=== PATIENT | female | born 1995 | race Caucasian/White ===

== ENCOUNTER → 2016-10-28 | Outpatient (REF) | payer OTHER | LOC: M SFHCLERA 13:02 | PROVIDERS: ATTEND Nurse Practitioner Family | DX: J02.9 Acute pharyngitis, unspecified (principal) ==

== ENCOUNTER → 2016-11-27 | Outpatient (REF) | payer OTHER | LOC: M LAB REF 17:22 | PROVIDERS: ATTEND Surgery | DX: D22.9 Melanocytic nevi, unspecified (principal) ==

== ENCOUNTER → 2017-04-09 | Outpatient (REF) | payer OTHER | LOC: M SFHCWAGY 08:16 | DX: Z12.4 Encounter for screening for malignant neoplasm of cervix (principal) | CPT/HCPCS: G0123 ==

== ENCOUNTER → 2017-04-23 | Outpatient (REF) | payer OTHER ==
[2017-04-23 21:31] LABS: CHLAMYDIA DNA AMPLIFICATION NEGATIVE (NEGATIVE); GC DNA AMPLIFICATION POSITIVE (NEGATIVE)
== END ==
LOC: M SFHCWAGY 17:46
DX: Z11.3 Encounter for screening for infections with a predominantly sexual mode of transmission (principal)

== ENCOUNTER → 2017-04-25 | Outpatient (REF) | payer OTHER ==
[2017-04-28 10:40] LABS: HIV 1&2 SCREEN CENTAUR NEGATIVE (NEGATIVE)
== END ==
LOC: M SFHCWAGY 15:14
DX: Z11.3 Encounter for screening for infections with a predominantly sexual mode of transmission (principal); Z11.4 Encounter for screening for human immunodeficiency virus [HIV]

== ENCOUNTER → 2017-05-23 | Outpatient (REF) | payer OTHER ==
[2017-05-23 14:30] LABS: HIV 1&2 SCREEN CENTAUR NEGATIVE (NEGATIVE)
== END ==
LOC: M SFHCWAGY 11:35
DX: A54.9 Gonococcal infection, unspecified (principal)

== ENCOUNTER → 2017-05-23 | Outpatient (REF) | payer OTHER ==
[2017-05-23 17:49] LABS: CHLAMYDIA DNA AMPLIFICATION NEGATIVE (NEGATIVE); GC DNA AMPLIFICATION NEGATIVE (NEGATIVE)
== END ==
LOC: M SFHCWAGY 15:38
DX: A54.9 Gonococcal infection, unspecified (principal)

== ENCOUNTER → 2017-09-19 | Outpatient (REF) | payer OTHER | LOC: M SFHCWAGY 11:49 | DX: N39.46 Mixed incontinence (principal) ==

== ENCOUNTER → 2017-09-25 | Outpatient (REF) | payer OTHER ==
[2017-09-25 15:20] LABS: CHLAMYDIA DNA AMPLIFICATION NEGATIVE (NEGATIVE); GC DNA AMPLIFICATION NEGATIVE (NEGATIVE)
== END ==
LOC: M SFHCWAGY 12:53
DX: N39.46 Mixed incontinence (principal); R39.15 Urgency of urination; Z11.3 Encounter for screening for infections with a predominantly sexual mode of transmission

== ENCOUNTER → 2017-10-02 | Outpatient (REF) | payer OTHER ==
[2017-10-02 09:36] LABS: AMORPHOUS SEDIMENT SMALL (NEGATIVE); APPEARANCE, URINE HAZY (CLEAR); BACTERIA, URINE AUTO NEGATIVE (NEGATIVE); BILIRUBIN, URINE AUTO NEGATIVE (NEGATIVE); BLOOD, URINE BLOOD NEGATIVE (NEGATIVE); COLOR, URINE YELLOW (YELLOW); GLUCOSE, URINE (UA) AUTO NEGATIVE (NEGATIVE); KETONE, URINE AUTO NEGATIVE (NEGATIVE); LEUKOCYTE ESTERASE, URINE AUTO NEGATIVE (NEGATIVE); MUCUS, URINE SMALL (NEGATIVE); NITRITE, URINE AUTO NEGATIVE (NEGATIVE); PROTEIN, URINE AUTO NEGATIVE (NEGATIVE); RBC, URINE AUTO 2 /HPF (0-3); SPECIFIC GRAVITY URINE AUTO 1.017 (1.002-1.035); SQUAMOUS EPITHELIAL CELL UR AU 0 /HPF (0-6); UROBILINOGEN, URINE AUTO 0.2 mg/dL (0.0-2.0); WBC, URINE AUTO 1 /HPF (0-3)
== END ==
LOC: M SMT 09:16
DX: R39.15 Urgency of urination (principal)

== ENCOUNTER → 2018-04-10 | Outpatient (REF) | payer OTHER ==
[2018-04-10 14:43] LABS: CHLAMYDIA DNA AMPLIFICATION NEGATIVE (NEGATIVE); GC DNA AMPLIFICATION NEGATIVE (NEGATIVE)
== END ==
LOC: M SFHCWAGY 09:48
PROVIDERS: ATTEND Nurse Practitioner Women's Health
DX: Z12.4 Encounter for screening for malignant neoplasm of cervix (principal)

== ENCOUNTER → 2018-08-24 | Outpatient (REF) | payer OTHER ==
[2018-08-24 13:22] LABS: AMORPHOUS SEDIMENT SMALL (NEGATIVE); APPEARANCE, URINE CLOUDY (CLEAR); BACTERIA, URINE AUTO NEGATIVE (NEGATIVE); BILIRUBIN, URINE AUTO NEGATIVE (NEGATIVE); BLOOD, URINE BLOOD NEGATIVE (NEGATIVE); COLOR, URINE YELLOW (YELLOW); GLUCOSE, URINE (UA) AUTO NEGATIVE (NEGATIVE); KETONE, URINE AUTO NEGATIVE (NEGATIVE); LEUKOCYTE ESTERASE, URINE AUTO 2+ (NEGATIVE); MUCUS, URINE SMALL (NEGATIVE); NITRITE, URINE AUTO NEGATIVE (NEGATIVE); PROTEIN, URINE AUTO NEGATIVE (NEGATIVE); RBC, URINE AUTO 2 /HPF (0-3); SPECIFIC GRAVITY URINE AUTO 1.017 (1.002-1.035); SQUAMOUS EPITHELIAL CELL UR AU 19 /HPF (0-6); UROBILINOGEN, URINE AUTO 0.2 mg/dL (0.0-2.0); WBC, URINE AUTO 7 /HPF (0-3)
== END ==
LOC: M SMT 12:48
PROVIDERS: ATTEND Nurse Practitioner Family
DX: R39.15 Urgency of urination (principal)

== ENCOUNTER → 2019-04-16 | Outpatient (REF) | payer OTHER ==
[2019-04-16 15:58] LABS: CHLAMYDIA DNA AMPLIFICATION NEGATIVE (NEGATIVE); GC DNA AMPLIFICATION NEGATIVE (NEGATIVE)
== END ==
LOC: M SFHCWAGY 13:24
PROVIDERS: ATTEND Nurse Practitioner Women's Health
DX: Z11.3 Encounter for screening for infections with a predominantly sexual mode of transmission (principal)

== ENCOUNTER → 2020-04-24 | Outpatient (REF) | payer OTHER ==
[2020-04-24 20:44] LABS: CHLAMYDIA DNA AMPLIFICATION NEGATIVE (NEGATIVE); GC DNA AMPLIFICATION NEGATIVE (NEGATIVE)
== END ==
LOC: M SFHCWAGY 16:41
PROVIDERS: ATTEND Nurse Practitioner Women's Health
DX: Z11.3 Encounter for screening for infections with a predominantly sexual mode of transmission (principal); Z12.4 Encounter for screening for malignant neoplasm of cervix; Z01.419 Encounter for gynecological examination (general) (routine) without abnormal findings

== ENCOUNTER → 2020-09-06 | Outpatient (REF) | payer OTHER ==
[2020-09-06 13:42] LABS: BACTERIA, URINE AUTO NEGATIVE (NEGATIVE); RBC, URINE AUTO 0 /HPF (0-3); SQUAMOUS EPITHELIAL CELL UR AU 1 /HPF (0-6); WBC, URINE AUTO 0 /HPF (0-3)
== END ==
LOC: M SMT 12:06
PROVIDERS: ATTEND Specialist
DX: R39.15 Urgency of urination (principal)

== ENCOUNTER 2020-11-01 08:00 | Day surgery (SDC) | payer OTHER ==
[~2020-11-01] VITALS: Ht 167.6 cm; Wt 66.0 kg
[~2020-11-01 08:00] MED LIST: ESTA0.25 PO; LR 1,000 ML IV ONE; MYRB50TA PO
[2020-11-01] MEDS ORDERED: ceFAZolin SOD 2 GM in IV 1 EA IV ONE (08:30)
[2020-11-01] MEDS ORDERED: fentaNYL 100 MCG/2 ML INJECTION (J3010) As Ordered ONE (09:28)
[2020-11-01] MEDS ORDERED: ONDANSETRON 4MG/2ML VIAL As Ordered ONE (09:28)
[2020-11-01] MEDS ORDERED: propofoL 200 MG/20 ML VIAL As Ordered ONE (09:28)
[2020-11-01] MEDS ORDERED: MIDAZOLAM INJ 2MG/2ML VIAL (J2250 PER 1MG) As Ordered ONE (09:28)
[2020-11-01] MEDS ORDERED: KETOROLAC 60MG 2ML VIAL As Ordered ONE (09:28)
[2020-11-01] MEDS ORDERED: LIDOCAINE 2% 100MG/5ML SDV (FOR ANES.) As Ordered ONE (09:28)
[2020-11-01] MEDS ORDERED: KETAMINE HCL 200 MG/20 ML VIAL As Ordered ONE (09:35)
[2020-11-01] MEDS ORDERED: LIDOCAINE 1% SDV 30ML VIAL As Ordered ONE (10:31)
[2020-11-01] MEDS ORDERED: SODIUM BICARBONATE 4.2% INJ 10 ML SYRINGE As Ordered ONE (10:31)
[2020-11-01] MEDS ORDERED: GLYCOPYRROLATE INJ 0.2 MG/ML 2 ML VIAL As Ordered ONE (10:58)
--- NOTE | 2020-11-01 11:55 | REP ---
INDICATION: INTERSTIM STAGE 2 PLACEMENT. COMPARISON: None. TECHNIQUE: Three views. 41.3 seconds of fluoroscopy time is reported. FINDINGS: A sequence of 3 last image hold fluoroscopically obtained spot radiographs of the sacrum document trans sacral neurostimulator lead placement. IMPRESSION: Procedural imaging. <Electronically signed by Xu Isaac > 11/01/20 [id number]
--- NOTE | 2020-11-01 12:27 | ROOPDOC ---
[facility] Report Of Operation Report of Operation DATE OF PROCEDURE: 11/01/20 PREPROCEDURE DIAGNOSES: Urinary urgency, frequency, urge incontinence POSTPROCEDURE DIAGNOSES: Same PROCEDURE PERFORMED: Complete InterStim implantation with incision and implantation of the tined quadripolar lead electrodes into the right S3 foramen with fluoroscopic guidance for needle placement, subcutaneous implantation of sacral nerve neurostimulator with the rechargeable battery, and electronic analysis and programming SURGEON: Nadine Parmar MD ANESTHESIA: IV sedation ESTIMATED BLOOD LOSS: Approximately 5 mL. COMPLICATIONS: None REMARKS: Patient felt a tapping sensation in the vaginal region, had good anal bellowing and good movement of her big toe PROCEDURE NOTE: Patient has a history of urinary urgency, frequency, and urge incontinence and has failed both behavioral modification and medical management. An InterStim test done in the office provided significant improvement and she decided to go ahead with permanent implantation. All options, alternatives, risks, and benefits were discussed. The risks discussed included but was not limited to the risks of general anesthesia, reactions to medication, bleeding, infection, pain at the implant site, problems with the devices hardware, need for reprogramming and need for further management in the future. Informed consent was obtained in both verbal and written form. DESCRIPTION OF PROCEDURE: The patient was brought into the operating room and placed in the prone position. She had pillows placed under her pelvis and under her shins. Tape was placed so that we could see her anus. IV sedation was given and she was prepped and draped in the usual fashion. A special foramen needle was placed 2 cm above the right sacral notch and 3 cm lateral where the functional tester had been placed. Using fluoroscopy this was then placed through the S3 foramen. The depth of the needle was confirmed and adjusted fluoroscopically. The patient then identified the location of sensation which was in her labia. We also had direct observation of lifting of the perineum and plantar flexion of the great toe. The foramen needle stylette was removed and a directional guide was placed and confirmed fluoroscopy. Lead introducer sheath and dilator was placed through the needle and the needle was removed. The lead was seen until 3 electrodes were visible below the sacrum. The electrode was tested for location and patient sensation, visualization of Justus, and plantar flexion. An incision was then made into the subcutaneous tissue posterior to the iliac crest and lateral to the sacrum. Blunt dissection was continued until there was a pocket large enough for the Interstim battery. The tunneling tool with straw was placed from the lead exit site subcutaneously to the incised pocket. The tunneling tube was removed and the lead was fed through the straw and pulled out of the pocket site. The lead was cleansed of bodily fluid, dried and antibiotic irrigation was used. The lead was then inserted into the header of the Rechargeable InterStim neurostimulator until the blue tip and the single set screw was tightened. The neurostimulator was placed in the subcutaneous pocket in the right upper buttock with the logo identified side placed upwards and the excessive lead wrapped counterclockwise around the neurostimulator. The programming head was placed over the implanted neurostimulator in a sterile cover to ensure adequate lead connection and the parameters with were within normal limits. Impedances were confirmed to be within normal limits. The wound was again irrigated with antibiotic solution and closed with 2-0 chromic subcuticulars sutures and 4-0 Monocryl skin sutures. Counts were correct. Steri- Strips and gauze was placed over the incision. The patient tolerated the procedure well. NADINE PARMAR MD Nov 01, 2020 12:27
[2020-11-01 13:10] VITALS: BP 105/56
== END 2020-11-01 13:10 | disposition home or self-care (01) ==
LOC: M SDC 08:00
PROVIDERS: ATTEND Specialist
DX: R32 Unspecified urinary incontinence (principal); Z79.899 Other long term (current) drug therapy
CPT/HCPCS: 64581; 64590; 76000; 81025; C1787; C1897; J0690; J1885; J2250; J2405; J3010